=== PATIENT | male | born 1960 | race Caucasian/White ===

== ENCOUNTER 2023-10-25 16:54 | Emergency (ER) | payer OTHER, SELFPAY ==
[2023-10-25 16:56] VITALS: BP 127/85; PULSE 90; RESP 18; TEMP 36.8; O2SAT 99; BMI 23.8
--- NOTE | 2023-10-25 17:10 | RAD_ITS ---
STUDY: X-RAY - LUMBAR SPINE REASON FOR EXAM: Male, 63 years old. radicular pain TECHNIQUE: 3 view(s) of the lumbar spine were obtained. COMPARISON: None FINDINGS: Normal lumbar lordosis. Mild scoliosis with convexity to the right. There is a normal alignment of the vertebrae. There is multilevel endplate spondylosis of the lumbar vertebrae. There is multi-level degenerative disc disease with multi-level disc space narrowing. There is no demonstrated fracture. Multilevel bilateral facet hypertrophy, more severe from L3 to S1. There is atherosclerotic calcification of the abdominal aorta without a demonstrated aneurysm. 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 Electronically Signed: Maggie Jane MD at 17:49 EST ,
--- NOTE | 2023-10-25 17:11 | EDS_ITS ---
HPI History of Present Illness Chief Complaint: Lower Extremity Injury Narrative Narrative: 63-year-old male past medical history of 1 leg being longer than the other presents with right hip pain and right radicular pain that he has had over the last few days. His pain is in his right low back and radiates towards the front towards his right thigh. He denies any red flag signs for cauda equina, no fevers or chills, no loss of bowel or bladder, no saddle anesthesia. He and his relate history that he was having pain years ago, and they saw Dr. Porras who told him that 1 leg was longer than the other. He recommended shoe inserts which took away the patient's pain just after few days. While he has been using shoe inserts, he has not really changed out the other ones as they have worn down. Today, for his radicular pain and right hip pain/thigh pain he was given Tylenol this morning, then took a CBD gummy, and his had also given him Advil, but they were . A few hours ago, she had gotten new NSAIDs and gave him 2 Aleve. He states he feels somewhat better, but presents because of the right hip pain and radicular symptoms. He denies any recent trauma. PFSH PFS Home Medications cyclobenzaprine 10 mg tablet 10 mg PO TID PRN Muscle Spasm #20 TABLETS 10/25/23 [Rx Last Taken Unknown] Allergy/AdvReac Type Severity Reaction Status Date / Time No Known Allergies Allergy Verified 10/25/23 16:56 Social History Smoking Status: Never smoker ROS ROS ED ROS Narrative Constitutional: No fever, no chills. HEENT: No sore throat. No neck pain. No loss of vision. No rhinorrhea. Cardiovascular: No chest pain. No palpitations. No pedal edema. Respiratory: No cough, no shortness of breath. Abdominal: No abdominal pain. No nausea. No vomiting. Genitourinary: No dysuria. No hematuria. Musculoskeletal: No myalgias. Right low back pain. Right hip pain with right thigh pain/radicular symptoms. Neurologic: No headaches. No dizziness. No lightheadedness. Skin: No rash. No change in color. Psychiatric: No depression. No anxiety. EXAM Physical Exam Narrative Exam Narrative: Afebrile. Vital signs noted. HEENT: Normocephalic. Atraumatic. PERRL, EOMI. Neck soft and supple. No point tenderness or step off. Cardiovascular: Regular rate and rhythm. No murmurs, rubs, or gallops appreciated. Respiratory: No tachypnea. Lungs clear to auscultation bilaterally. Gastrointestinal: Abdomen soft, nontender, with normoactive bowel sounds. No rebound or guarding. Neurological: Awake. Alert. Nonfocal, nonlateralizing. Patellar DTRs equal and symmetric. EHL intact bilaterally. Straight leg raising negative bilaterally. Skin: No rash. Normal color. No pallor. Musculoskeletal: No pedal edema. Full range of motion extremities. Evidence to palpation right sciatic notch and low back. Const Vital Signs: 10/25/23 16:56 Temperature 98.2 F Temperature Source Temporal Pulse Rate 90 Respiratory Rate 18 Blood Pressure 127/85 H Blood Pressure Mean 99 Pulse Ox 99 Oxygen Delivery Method Room Air MDM MDM MDM Narrative Medical decision making narrative: The differential diagnosis is spinal stenosis versus lumbar radiculopathy versus disc herniation. I do not feel that emergent MRI is indicated. He may also have an occult hip fracture. X-rays were obtained of the lumbar spine and of the pelvis with right hip and interpreted by myself independently. I have low concern for DVT as the history and physical does not support this diagnosis. X- rays of the right hip and pelvis in 3 views obtained and interpreted by myself independently shows no evidence of a hip fracture or dislocation. I reviewed and interpreted the lumbar spine x-rays in 3 views and see no evidence of an acute compression fracture. There is DJD noted. I reviewed the radiology report for both the lumbar spine and the hip and pelvis which confirmed my independent interpretation. At this point in time, I do feel that he has more radicular pain and degenerative joint disease of the spine. I feel he can be discharged continue use of NSAIDs, and I wrote him a prescription for Flexeril to take as well. He will follow-up with his orthopedic surgeon. I feel he can be discharged safely home with follow-up. Return instructions to the emergency department were reviewed. Disposition is discharged home in stable condition. 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 Electronically Signed: Maggie Jane MD at 17:49 EST , Hip/Pelvis X-Ray 10/25/23 17:20 IMPRESSION: Multilevel degenerative disease as described. No evidence of fracture or dislocation of the right hip. Electronically Signed: Maggie Jane MD at 17:45 EST , Discharge Plan Triage Chief Complaint: Lower Extremity Injury ED Provider: Tavares Nieves Dx/Rx/DC Orders Clinical Impression: Lumbar radicular pain, Hip pain, right Instructions: ED Arthralgia, ED Sciatica Prescriptions: New cyclobenzaprine 10 mg tablet 10 mg PO TID PRN (Reason: Muscle Spasm) Qty: 20 0RF Primary Care Provider: Care Physician,No Primary Referrals: Ananth Porras, [Med Staff - Active Staff] - As soon as possible Care Physician,No Primary [Primary Care Provider] - Activity Restrictions/Additional Instructions: Continue use of [id number] nonsteroidal anti-inflammatory such as Aleve. Disposition Disposition: Home, Self Care Capacity Legal Orthodontic Laboratory Technician Reflex Medical hold order details:: IF a medical hold is selected below, a suggested order for a MEDICAL HOLD will reflex upon signing the document. Next of kin: [place] law dictates a PRIORITY LIST for identifying legal decision-maker/legal next of kin in the following order (LNOK): 1st: The patient?s legal guardian, if any 2nd: The patient's spouse (if status is questionable, consult Risk Management) 3rd: The patient?s adult child(edward) (majority, if multiple children) 4th: The patient?s parents 5th: The patient?s adult siblings (majority, if multiple children siblings)
--- NOTE | 2023-10-25 17:20 | RAD_ITS ---
STUDY: X-RAY - PELVIS AND RIGHT HIP REASON FOR EXAM: Male, 63 years old. pain TECHNIQUE: 3 views of the pelvis and hip. COMPARISON: None. FINDINGS: There is a non-specific bowel gas pattern. Normal visualized soft tissue structures. There is narrowing with cortical sclerosis and osteophyte formation of the sacroiliac joint consistent with degenerative osteoarthritic changes. Normal bilateral superior and inferior pubic rami. There are degenerative changes of the pubic symphysis with articular narrowing and sclerosis. Normal bilateral ischial tuberosities. Normal visualized femoral head. There is mild osteoarthritic spur formation of the acetabular rim. There is mild articular joint space narrowing of the hip. RAD/HIP, UNI W/ Pelvis 2-3 Views IMPRESSION: Multilevel degenerative disease as described. No evidence of fracture or dislocation of the right hip. Electronically Signed: Maggie Jane MD at 17:45 EST ,
== END 2023-10-25 18:10 | disposition home or self-care (01) ==
PROVIDERS: Emergency Provider Emergency Medicine; Visit Provider Emergency Medicine
DX: M51.16 Intervertebral disc disorders with radiculopathy, lumbar region (principal); M25.551 Pain in right hip; M21.70 Unequal limb length (acquired), unspecified site
CPT/HCPCS: 72100; 73502; 99282